=== PATIENT | male | born 1980 | race Two or more races ===

== ENCOUNTER 2017-10-29 21:47 | Emergency (ER) | payer BC ==
[~2017-10-29] VITALS: Ht 188 cm; Wt 83.5 kg
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
[2017-10-29 22:38] VITALS: BP 118/81
== END 2017-10-29 22:41 | disposition home or self-care (01) ==
LOC: ER 21:51
DX: M25.512 Pain in left shoulder (principal); M54.5 Low back pain; V29.49XA Motorcycle driver injured in collision with other motor vehicles in traffic accident, initial encounter; Y93.89 Activity, other specified; Y92.410 Unspecified street and highway as the place of occurrence of the external cause; Y99.8 Other external cause status
CPT/HCPCS: 99283; A4606; Z7610